=== PATIENT | female | born 1995 | race Caucasian/White ===

== ENCOUNTER 2019-12-30 20:29 | Emergency (ER) | payer MEDICAID, OTHER ==
[~2019-12-30] VITALS: Ht 170.2 cm; Wt 72.7 kg
[2019-12-30] MEDS ORDERED: ondansetron/PF 4mg/2ml inj IV ONE (21:05)
[2019-12-30] MEDS ORDERED: proCHLORperazine 10 MG/2 ml inj IV ONE (21:05)
[2019-12-30] MEDS ORDERED: ringers solution, lacted 1,000 ML IV ONE (21:05)
[2019-12-30] MEDS ORDERED: ONDA4TAB6 PO (21:32)
[2019-12-30 22:02] VITALS: BP 122/66
[2019-12-30 22:15] LABS: URINE HCG NEGATIVE (NEG)
== END 2019-12-30 23:14 | disposition home or self-care (01) ==
LOC: ER 20:29
DX: K52.9 Noninfective gastroenteritis and colitis, unspecified (principal); R11.2 Nausea with vomiting, unspecified; G40.909 Epilepsy, unspecified, not intractable, without status epilepticus
CPT/HCPCS: 81025; 96361; 96374; 96375; 99284; J0780; J2405; J7120